=== PATIENT | male | born 2005 | race Caucasian/White ===

== ENCOUNTER 2024-04-01 18:40 | Emergency (ER) | payer OTHER, SELFPAY ==
[2024-04-01 18:44] VITALS: BP 121/65
[2024-04-01 19:05] LABS: % Basophils 0.3 % (0-2); % Eosinophils 1.4 % (0-6); % Immature Granulocytes 0.3 % (0-0.5); % Lymphocytes 18.8 % (20.5-51.1); % Monocytes 7.4 % (1.7-9.3); % Neutrophils 71.8 % (42.2-75.2); Absolute Eosinophils 0.1 10^3/uL (0-0.7); Absolute Lymphocytes 1.3 10^3/uL (1.2-3.4); Absolute Monocytes 0.5 10^3/uL (0.1-0.6); Hematocrit 38.5 % (39.0-52.0); Hemoglobin 12.7 g/dL (13.0-18.0); Mean Corpuscular Hgb 29.2 pg (27.0-31.0); Mean Corpuscular Volume 88.5 fL (80.0-94.0); Mean Platelet Volume 8.7 fL (7.4-10.4); Nucleated Red Blood Cells % 0 % (-); Platelet Count 292 10^3/uL (130-400); Red Blood Cell Count 4.35 10^6/uL (4.70-6.10)
[2024-04-01 19:13] LABS: APTT 33.2 Sec (23.4-35.0)
[2024-04-01 19:18] LABS: ALT (SGPT) 88 U/L (0-50); AST (SGOT) 51 U/L (17-59); Albumin 4.5 g/dl (3.5-5.0); Alkaline Phosphatase 58 U/L (38-126); Blood Urea Nitrogen 21 mg/dl (9-20); Calcium 9.7 mg/dl (8.4-10.2); Carbon Dioxide 30 mmol/L (22-30); Chloride 100 mmol/L (98-107); Glucose 105 mg/dl (70-99); Potassium 4.5 mmol/L (3.5-5.1); Sodium 138 mmol/L (135-145); Total Protein 7.1 g/dl (6.3-8.2); eGFR > 60.00
[2024-04-01 20:16] VITALS: BP 135/73
--- NOTE | 2024-04-01 20:25 | ED.GENMED ---
History of Present Illness
General
Chief Complaint: DVT/Possible Blood Clot
Source: patient
Exam Limitations: none
Time Seen by Provider: 04/01/24 19:58
History of Present Illness
History of Present Illness:
This is a 18 year old male that comes in with c/o right leg pain. States that he is concerned that he has a blood clot. Sates that he has pain in the calf of the right leg and pain when he stands on his leg. States that for the past 2 days when he
stands on his foot it turns purple and red. States that he thought it felt hot. States that he has been SOB with the pain an nauseated. States that he has also had diarrhea, Denies any fever, chills, chest pain, abd pain, vomiting headache,
dizziness, urinary burning.
Past History
Past History
ED Past Medical History: None; Negative Asthma, HTN, Hypercholesterolemia or NIDDM
ED Past Surgical History: Orthopedic (Right Tibia with francis) and Other (Myringotomy tubes, Mole removed from back. )
Social History
Tobacco: Non-smoker
Alcohol: None
Personal: Single
Living: with family (when not in college)
Review of Systems
Review of Systems
All Other Systems: ROS reviewed and negative except as documented in HPI and ROS
Constitutional: Denies no symptoms, fever or chills
EENT: Reports no symptoms
Respiratory: Reports trouble breathing (with pain); Denies cough
Cardiac: Reports no symptoms; Denies chest pain
ABD/GI: Reports diarrhea; Denies abdominal pain, nausea or vomiting
: Reports no symptoms; Denies dysuria, frequency or urgency
Musculoskeletal: Reports other (right leg calf pain and foot looked purple and red when standiing. )
Skin: Reports no symptoms
Neurological: Reports no symptoms; Denies dizzy or headache
Psychiatric: Reports no symptoms
Phy Exam
General Physical Exam
General Presentation: well appearing (Patient eating when entering the room) and no apparent distress
General age: appears stated age
General Skin: warm and dry
General Habitus: normal
General Mental: alert
General Hydration: appears well hydrated
ENT Exam
ENT Exam: TM's normal, pharynx normal and neck supple
Eye Exam
Eye Exam: EOMI
Cardiovascular Exam
Cardiovascular Exam: regular rate/rhythm and normal peripheral pulses
Pulmonary Exam
Pulmonary Exam: lungs clear, no respiratory distress, no rales, chest non tender, no crackles, no rhonchi, no wheezing and no cough
Gastrointestinal Exam
Gastrointestinal Exam: normal bowel sounds, non tender, soft, no organomegaly, no pulsatile mass and non distended
Musculoskeletal Exam
Musculoskeletal Exam: other (Right leg contusion noted on the posterior lower thigh and the lower leg, Negative for any pitting edema. )
Skin Exam
Skin Exam: normal color, warm/dry, no petechia and other (3 incision lined noted on the right leg, clean and dry)
Psychiatric Exam
Psychiatric Exam: normal mood/affect
Course
Orders/Labs/Results
Orders:
Orders
04/01/24 18:52
US Periph Venous LOWER Ext RT Urgent
Comment:
Reason For Exam: calf pain, redness, warmth
04/01/24 18:55
Complete Blood Count/With Diff Urgent
Comprehensive Metabolic Panel Urgent
PTT Urgent
04/01/24 20:29
Acetaminophen [Tylenol] 1,000 mg PO NOW STA
Abnormal Lab Results
04/01/24
18:55
RBC 4.35 L 10^6/uL
(4.70-6.10)
Hgb 12.7 L g/dL
(13.0-18.0)
Hct 38.5 L %
(39.0-52.0)
Lymphocytes % 18.8 L %
(20.5-51.1)
BUN 21 H mg/dl
(9-20)
Glucose 105 H mg/dl
(70-99)
ALT 88 H U/L
(0-50)
04/01/24 18:55
04/01/24 18:55
H/H slightly low. Dehydration. Glucose nonfasting. ALT elevation. PTT 33.2
Vital Signs
Initial and Last Documented VS:
Initial Vital Signs
Temp Pulse Resp BP Pulse Ox
97.5 F 79 16 121/65 97
04/01/24 18:44 04/01/24 18:44 04/01/24 18:44 04/01/24 18:44 04/01/24 18:44
Last Documented Vital Signs
Temp Pulse Resp BP Pulse Ox
97.5 F 79 16 135/73 97
04/01/24 18:44 04/01/24 18:44 04/01/24 18:44 04/01/24 20:16 04/01/24 18:44
MDM/Problems Addressed
Differential Diagnosis Includes:
DVT, . Over use of post surgical leg
MDM/Problems Addressed:
This is a 18 year old male that comes in with c/o right leg pain. States that he has pain in the calf and when he walks on the leg he has pain.
Will check labs and get US. Will give Tylenol for pain
Back into see patient and family. Explained that his US is negative for any DVT. There is no redness or area's of increased warmth. Encouraged patient not to over due and use his medication for pain. Follow up with the [facility] specialist. Return
with any concern.
Chronic conditions affecting care:
Right leg surgery
Acute Exacerbation and/or Progression of Chronic Illness:
Right leg surgery
*Radiology
Radiology exam reviewed: radiology read reviewed (US-NO evidence of deep venous thrombosis in the right lower extremity as described above )
*Pulse Oximetry
Patient hypoxic: no
*EKG
Interpreted by ED Provider?: NA
Rate: EKG- N/A
*Clinical Data Assistant Interpretation
Rate: Clinical Data Assistant- N/A
*Critical Care Note
Total Time (30-74mins, 75-104mins- exclusive of procedures): Not Applicable
ED Attending Note
-
Portions of this chart may have been created with voice recognition software.� Occasional wrong word or��sound alike� substitutions may have occurred due to the inherent limitations of voice recognition software.
Discharge Plan
Departure
Patient Disposition: Home (Routine Discharge)
Date of Disposition: 04/01/24
Time of Disposition: 21:27
Patient with high blood pressure during this ER visit?: Yes
Condition: Good
Covid-19: Not Applicable
Discharge Problem:
Leg pain, right
Instructions: Managing pain after surgery, BLOOD PRESSURE
Activity Restrictions/Additional Instructions:
As discussed, your blood work shows that you are very slightly dehydrated. Please increase your water intake to 8-8oz glasses daily. Your Ultrasound is negative for any DVT. Your Foot and lower leg may still become bruised as the blood drains down
with gravity. Please use Tylenol 1000mg every 6 hours for pain and Ibuprofen 600mg every 6 hours with food for pain. You may alternate them so that every 3 hours you are taking something if you needed it. Follow up with the [facility] specialist for
further evaluation. IF YOU HAVE ANY OTHER CONCERNS PLEASE RETURN TO THE EMERGENCY ROOM.
Interventions
Interventions:
*General Assessment Last Done: 04/01/24 18:44
ED- Fall Risk Assessment Last Done: 04/01/24 18:44
*ED COVID-19 Vaccine History Last Done: 04/01/24 18:44
ED-Skin Assessment Last Done: 04/01/24 20:44
Discharge Date and Time
Print Language: SPANISH
[2024-04-01] MEDS: TYLENOL 1000 MG PO (21:13)
[2024-04-01 21:55] VITALS: BP 120/50
== END 2024-04-01 22:00 | disposition home or self-care (01) ==
LOC: EMR 18:40
PROVIDERS: EMERGENCY PHYSICIAN Emergency Medicine; FAMILY PHYSICIAN Pediatrics
DX: M79.604 Pain in right leg (principal); E86.0 Dehydration
CPT/HCPCS: 99284; 80053; 85025; 85730; 93971